=== PATIENT | female | born 1955 | race Two or more races ===

== ENCOUNTER 2020-06-23 18:18 | Inpatient (IN) | payer SELFPAY ==
[~2020-06-23] VITALS: Ht 142.2 cm; Wt 85.1 kg
[2020-06-23] MEDS ORDERED: ATORVASTATIN CA40 MG ORAL (18:24)
[2020-06-23] MEDS ORDERED: NORMODYNE200 MG ORAL (18:24)
[2020-06-23] MEDS ORDERED: FUROSEMIDE40 MG ORAL (18:24)
[2020-06-23] MEDS ORDERED: CALCIUM ACETAT667 M1 PO (18:24)
[2020-06-23 18:35] VITALS: BP 111/53
[2020-06-23] MEDS ORDERED: NAPROXEN250 M1 PO (18:47)
[2020-06-23] MEDS ORDERED: GABAPENTIN100 MG ORAL (18:47)
[2020-06-23] MEDS ORDERED: AMLODIPINE BESY10 MG ORAL (18:47)
[2020-06-23] MEDS ORDERED: ASPIRIN81 MG ORAL (18:47)
[2020-06-23 19:10] VITALS: BP 122/62
[2020-06-23 19:18] LABS: BASOPHILS % (AUTO) 2.3 % (0.0-2.0); EOSINOPHILS % (AUTO) 2.2 % (0.0-3.0); HEMATOCRIT 30.9 % (37.0-47.0); HEMOGLOBIN 9.5 G/DL (12.0-16.0); LYMPHOCYTES % (AUTO) 15.9 % (20.0-45.0); MEAN CORPUSCULAR VOLUME 88 FL (80-99); NEUTROPHILS % (AUTO) 71.6 % (45.0-75.0); PLATELET COUNT 369 K/UL (150-450); RED BLOOD COUNT 3.49 M/UL (4.20-5.40); RED CELL DISTRIBUTION WIDTH 16.3 % (11.6-14.8); WHITE BLOOD COUNT 6.3 K/UL (4.8-10.8)
--- NOTE | 2020-06-23 20:22 | Emergency Room Report ---
History of Present Illness General Chief Complaint: Generalized Weakness Source: Patient, Family Member, EMS Present Illness HPI The patient states she has had generalized weakness for the past 2 days. She has no other symptoms. She denies fever chills. She denies nausea or vomiting. She denies chest pain or shortness of breath. She denies abdominal pain. She has no other complaints. Later, I was able to speak with the patient's daughter who states that the patient has a recent diagnosis of renal failure. The daughter states that 2 weeks ago she has started developing swelling in her legs. She was seen by multiple doctors and determined that she was in renal failure. She was admitted to [facility] for approximately 6 days. She was discharged from there 2 days ago. Since she was discharged she has slowly become weak and very fatigued. She is on a cocktail of medications that includes a significant amount of diuretics and blood pressure medications. She was told at discharge that she did not currently need dialysis she may in the future. She does have a car deliverer that she did contact but the car deliverer told her to increase her Lasix. She states she is just become very weak and fatigued. 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 COVID-19 Screening: Negative COVID-19 COVID-19 Testing Source: [facility] Patient History Past Medical History: see triage record, DM, HTN, renal disease Social History: Denies: smoking, alcohol use, drug use Reviewed Nursing Documentation: PMH: Agreed; PSxH: Agreed Nursing Documentation-PMH Past Medical History: No History, Except For Hx Hypertension: Yes Hx Diabetes: Yes Review of Systems All Other Systems: negative except mentioned in HPI Physical Exam Vital Signs Date Time Temp Pulse Resp B/P (MAP) Pulse Ox O2 Delivery O2 Flow Rate FiO2 06/23/20 18:07 98.4 67 20 105/61 (76) 99 Room Air Sp02 EP Interpretation: reviewed, normal General Appearance: no apparent distress, alert, GCS 15, non-toxic Head: normocephalic, atraumatic Eyes: bilateral eye normal inspection, bilateral eye PERRL ENT: hearing grossly normal, normal pharynx, no angioedema, normal voice Neck: normal inspection, full range of motion, supple/symm/no masses Respiratory: chest non-tender, lungs clear, normal breath sounds, no re spiratory distress, no retraction, no accessory muscle use, speaking full sentences Cardiovascular #1: regular rate, rhythm, no edema Gastrointestinal: normal bowel sounds, non tender, soft, non-distended, no gua rding, no rebound Rectal: deferred Musculoskeletal: normal inspection, back normal, normal range of motion, non- tender Neurologic: alert, motor strength/tone normal, oriented x3, sensory intact, responsive, speech normal Psychiatric: judgement/insight normal, memory normal, mood/affect normal, no suicidal/homicidal ideation Skin: no rash, normal color Medical Decision Making Diagnostic Impression: Primary Impression: Renal failure Additional Impressions: Hyperglycemia EKG abnormality Hyponatremia ER Course This patient is found to have severe renal failure. The patient's creatinine is 15, her potassium is 7.9. The EKG does show some changes of sinus bradycardia with first-degree AV block. I am concerned for these changes as there is slight widening of the QRS complex. The patient was given insulin IV, glucose IV, calcium gluconate and albuterol by nebulizer to decrease her potassium acutely in the emergency department. My colleague who is taking over Dr. Hickey will place the dialysis catheter that this patient needs it. Please see his p harley note. Patient will be admitted to the ICU and the on-call car deliverer was contacted to arrange emergency dialysis for this patient. The patient is critically ill. She is admitted for further evaluation and treatment. This patient is critically ill. This patient required complex medical decision- making, aggressive intervention, extensive laboratory workup and monitoring. Critical care time: 40 minutes. This patient was evaluated in the context of the global COVID-19 pandemic, which necessitated consideration that the patient might be at risk for infection with the [id number] virus that causes COVID-19. Institutional protocols and algorithms that pertain to the evaluation of patients at risk for COVID-19 and the state of rapid change based on information released by multiple regulatory bodies including the CDC and federal and state organizations. These policies and algorithms were followed during the patient's care in the ED. Laboratory Tests Test 06/23/20 18:55 06/23/20 19:50 White Blood Count 6.3 K/UL (4.8-10.8) Red Blood Count 3.49 M/UL (4.20-5.40) L Hemoglobin 9.5 G/DL (12.0-16.0) L Hematocrit 30.9 % (37.0-47.0) L Mean Corpuscular Volume 88 FL (80-99) Mean Corpuscular Hemoglobin 27.3 PG (27.0-31.0) Mean Corpuscular Hemoglobin Concent 30.8 G/DL (32.0-36.0) L Red Cell Distribution Width 16.3 % (11.6-14.8) H Platelet Count 369 K/UL (150-450) Mean Platelet Volume 6.6 FL (6.5-10.1) Neutrophils (%) (Auto) 71.6 % (45.0-75.0) Lymphocytes (%) (Auto) 15.9 % (20.0-45.0) L Monocytes (%) (Auto) 8.0 % (1.0-10.0) Eosinophils (%) (Auto) 2.2 % (0.0-3.0) Basophils (%) (Auto) 2.3 % (0.0-2.0) H Troponin I 0.000 ng/mL (0.000-0.056) Sodium Level 123 MMOL/L (136-145) L Potassium Level 7.9 MMOL/L (3.5-5.1) *H Chloride Level 91 MMOL/L (98-107) L Carbon Dioxide Level 15 MMOL/L (21-32) L Anion Gap 17 mmol/L (5-15) H Blood Urea Nitrogen 90 mg/dL (7-18) H Creatinine 15.3 MG/DL (0.55-1.30) H Estimated Glomerular Filtration Rate 2.4 mL/min (>60) Glucose Level 108 MG/DL (74-106) H Calcium Level 6.7 MG/DL (8.5-10.1) L Total Bilirubin 0.6 MG/DL (0.2-1.0) Aspartate Amino Transferase (AST) < 5 U/L (15-37) L Alanine Aminotransferase (ALT) 24 U/L (12-78) Alkaline Phosphatase 114 U/L (46-116) Total Creatine Kinase 208 U/L (26-308) Total Protein 6.8 G/DL (6.4-8.2) Albumin 3.3 G/DL (3.4-5.0) L Globulin 3.5 g/dL Albumin/Globulin Ratio 0.9 (1.0-2.7) L EKG Diagnostic Results Rate: bradycardiac Rhythm: other - S.bradycardia with 1st degree AV block. ST Segments: no acute changes Other Impression Q-waves in V1, V2, NSST findings. Rhythm Strip Diag. Results EP Interpretation: yes Rate: 50's Rhythm: no PVC's, no ectopy, other - S.bradycardia Last Vital Signs Date Time Temp Pulse Resp B/P (MAP) Pulse Ox O2 Delivery O2 Flow Rate FiO2 06/23/20 18:35 98.4 58 20 111/53 99 Room Air Disposition: ADMITTED INPATIENT Condition: Critical Referrals: NON PHYSICIAN (PCP) Kylee Allison DO Jun 23, 2020 20:22
[2020-06-23 20:38] LABS: ALANINE AMINOTRANSFERASE 24 U/L (12-78); ALBUMIN 3.3 G/DL (3.4-5.0); ALBUMIN/GLOBULIN RATIO 0.9 (1.0-2.7); ALKALINE PHOSPHATASE 114 U/L (46-116); ANION GAP 17 mmol/L (5-15); ASPARTATE AMINO TRANSFERASE < 5 U/L (15-37); BILIRUBIN,TOTAL 0.6 MG/DL (0.2-1.0); BLOOD UREA NITROGEN 90 mg/dL (7-18); CALCIUM 6.7 MG/DL (8.5-10.1); CARBON DIOXIDE 15 MMOL/L (21-32); CHLORIDE 91 MMOL/L (98-107); CREATINE KINASE 208 U/L (26-308); CREATININE 15.3 MG/DL (0.55-1.30); SODIUM 123 MMOL/L (136-145)
[2020-06-23 21:05] LABS: POTASSIUM 7.9 MMOL/L (3.5-5.1)
[2020-06-23 21:30] VITALS: BP 115/54
[2020-06-23] MEDS ORDERED: Albuterol ud Inhalation HHN ONE (21:30)
[2020-06-23] MEDS ORDERED: Insulin Human Regular 100units/ml 3ml IV ONE (21:30)
[2020-06-23] MEDS ORDERED: Calcium Gluconate 1gm/50ml 50 ML IVPB ONE (21:30)
[2020-06-23] MEDS ORDERED: Lidocaine 1% Plain 30 ml INJ ONE ×2 (22:03→22:15)
[2020-06-23] MEDS ORDERED: Acetaminophen 500mg (ES) tab ORAL PRN (22:15)
[2020-06-23] MEDS ORDERED: D5NS 1,000 ML IV SCH (22:15)
[2020-06-23] MEDS ORDERED: Sodium Polystyrene Sulfonate 15gm Powder ORAL STA (22:21)
[2020-06-23] MEDS: Sodium Bicarbonate 150 ML in D5W 1000ml 1,000 ML IV SCH (22:30)
[2020-06-23] MEDS ORDERED: Calcium Gluconate 1gm/50ml 50 ML IVPB SCH (22:30)
--- NOTE | 2020-06-23 22:32 | Emergency Room Report ---
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 COVID-19 Screening: Negative COVID-19 COVID-19 Testing Source: [facility] Nursing Documentation-PMH Past Medical History: No History, Except For Hx Hypertension: Yes Hx Diabetes: Yes Physical Exam Vital Signs Date Time Temp Pulse Resp B/P (MAP) Pulse Ox O2 Delivery O2 Flow Rate FiO2 06/23/20 18:07 98.4 67 20 105/61 (76) 99 Room Air Procedures Central Line Central Line : Consent: Written Central Line Lumen: triple Maximal Sterile Barrier Tech: yes cap, yes mask, yes sterile gown, yes sterile gloves, yes large sterile sheet, yes hand hygiene, yes chlorhexidine prep Central Line Postion: femoral (R) Anesthesia: Lidocaine cc's of anesthesia: 10 US Guided Line?: No Complications: none Central Line Post Position: sutured, good blood return Attempts: One Patient Tolerated: Well Complications: None Progress Patient was signed out to me to put in a dialysis catheter. She presents with acute renal failure with hyperkalemia. She was treated medically. She is to be admitted to the ICU for dialysis. With consent I placed a right femoral dialysi s catheter. Patient tolerated procedure without any problem. This was done under sterile condition. Medical Decision Making Diagnostic Impression: Primary Impression: Renal failure Additional Impressions: Hyperglycemia Hyponatremia EKG abnormality Last Vital Signs Date Time Temp Pulse Resp B/P (MAP) Pulse Ox O2 Delivery O2 Flow Rate FiO2 06/23/20 18:35 98.4 58 20 111/53 99 Room Air Disposition: ADMITTED INPATIENT Condition: Critical Referrals: NON PHYSICIAN (PCP) Carter Hickey MD Jun 23, 2020 22:32
[2020-06-23] MEDS ORDERED: FUROSEMIDE IV SCH (23:00)
[2020-06-23] MEDS ORDERED: D5W IV SCH (23:00)
[2020-06-23 23:18] VITALS: BP 107/56
[2020-06-24] VITALS (25 sets, daily range): BP systolic 105–184; BP diastolic 45–103
[2020-06-24] MEDS ORDERED: Albuterol/Ipratropium 3ml neb HHN ONE
[2020-06-24] MEDS ORDERED: Heparin Sod 1000 units/ml 10ml IV SCH (03:00)
[2020-06-24] MEDS: Sodium Bicarbonate 150 ML in D5W 1000ml 1,000 ML IV SCH ×4 (03:18→21:16)
[2020-06-24] MEDS ORDERED: HYDROcodone/Acetamin 10/325 tab ORAL PRN (07:45)
[2020-06-24 09:03] LABS: BASOPHILS % (AUTO) 0.8 % (0.0-2.0); EOSINOPHILS % (AUTO) 1.4 % (0.0-3.0); HEMATOCRIT 25.5 % (37.0-47.0); HEMOGLOBIN 8.4 G/DL (12.0-16.0); LYMPHOCYTES % (AUTO) 8.7 % (20.0-45.0); MEAN CORPUSCULAR VOLUME 84 FL (80-99); MONOCYTES % (AUTO) 7.3 % (1.0-10.0); NEUTROPHILS % (AUTO) 81.8 % (45.0-75.0); PLATELET COUNT 337 K/UL (150-450); RED BLOOD COUNT 3.04 M/UL (4.20-5.40); RED CELL DISTRIBUTION WIDTH 15.4 % (11.6-14.8); WHITE BLOOD COUNT 7.7 K/UL (4.8-10.8)
--- NOTE | 2020-06-24 09:15 | History and Physical Report ---
DATE OF ADMISSION: 06/23/2020 CHIEF COMPLAINT: Acute on chronic renal failure and hyperkalemia. HISTORY OF PRESENT ILLNESS: The patient is a 64-year-old female with a history of chronic kidney disease. She apparently has a history of partial nephrectomy on the left side and has had worsening renal insufficiency. She was admitted to [facility] a week ago. She was admitted for kidney problems, but is unclear of exactly what her numbers were like. She was scheduled to follow up in a week. She felt weak and tired and presented to the emergency room, was noted to have a sodium of 123 and a potassium of 8. Her creatinine was 15 and BUN of 90. She is now status post emergent hemodialysis for severe hyperkalemia. PAST MEDICAL HISTORY: As above and history of hypertension and diabetes. PAST SURGICAL HISTORY: Includes a partial nephrectomy on the left. CURRENT MEDICATIONS: Reconciled and reviewed. ALLERGIES: None. FAMILY HISTORY: None. SOCIAL HISTORY: Negative for tobacco, ethanol, or drugs. REVIEW OF SYSTEMS: GENERAL: No fevers or chills. Positive malaise and weakness. HEENT: No headaches. CARDIOPULMONARY: No chest pain or shortness of breath. GASTROINTESTINAL: No nausea or vomiting. GENITOURINARY: No urgency or frequency. MUSCULOSKELETAL: No joint pain or swelling. NEUROLOGIC: No evidence of seizures. PHYSICAL EXAMINATION: VITAL SIGNS: Temperature 98.4, pulse 82, respirations 15, blood pressure 171/56. GENERAL: The patient is well developed, in no apparent distress. HEART: Regular rate and rhythm. LUNGS: Clear. ABDOMEN: Soft, nontender, and nondistended. EXTREMITIES: Without clubbing, cyanosis, or edema. LABORATORY DATA: Sodium 123, potassium 7.9, bicarb 15, BUN 90, creatinine was 15. White count was 6, hemoglobin 9.5. ASSESSMENT: This is a 64-year-old female admitted with acute renal failure and hyperkalemia status post emergent hemodialysis. PLAN: 1. Continue hemodialysis per Renal. 2. Await repeat lytes. 3. Continue outpatient insulin regimen. 4. Monitor Accu-Cheks. 5. Check a renal ultrasound. 6. The patient likely will need long-term hemodialysis. 7. Plan of care was discussed with the patient at the bedside. 8. Renal consultation is pending. Trev Montemayor M.D. DR: CHANCE JOB#: [id number] CC:
[2020-06-24 09:37] LABS: ALANINE AMINOTRANSFERASE 19 U/L (12-78); ALBUMIN 3.1 G/DL (3.4-5.0); ALBUMIN/GLOBULIN RATIO 0.8 (1.0-2.7); ALKALINE PHOSPHATASE 114 U/L (46-116); ANION GAP 15 mmol/L (5-15); ASPARTATE AMINO TRANSFERASE 18 U/L (15-37); BILIRUBIN,TOTAL 0.8 MG/DL (0.2-1.0); BLOOD UREA NITROGEN 34 mg/dL (7-18); CALCIUM 8.4 MG/DL (8.5-10.1); CARBON DIOXIDE 25 MMOL/L (21-32); CHLORIDE 98 MMOL/L (98-107); CHOLESTEROL 110 MG/DL (< 200); CREATINE KINASE 166 U/L (26-308); HDL CHOLESTEROL 33 MG/DL (40-60); PHOSPHORUS 6.6 MG/DL (2.5-4.9); POTASSIUM 3.8 MMOL/L (3.5-5.1); SODIUM 138 MMOL/L (136-145); TRIGLYCERIDES 210 MG/DL (30-150)
[2020-06-24] MEDS: Levemir Flexpen SUBQ SCH ×2 (09:44→18:51)
[2020-06-24] MEDS ORDERED: HydrALAZINE 50mg tab ORAL SCH (09:58)
[2020-06-24] MEDS ORDERED: Heparin Sod 1000 units/ml 10ml IV PRN (09:59)
[2020-06-24] MEDS: Aspirin EC 81mg tab ORAL SCH (10:34)
--- NOTE | 2020-06-24 10:37 | Diagnostic Imaging Report ---
Indication: Acute renal failure Technique: Grayscale and duplex images of the kidneys, retroperitoneum, and bladder were obtained. Comparison: none Findings: Right kidney measures 10.9 cm in length. Left kidney measures 8.2 cm in length. Both kidneys demonstrate normal echogenicity. No hydronephrosis. No focal abnormality. Normal inferior vena cava. Bladder is nearly empty, unremarkable. Impression: negative.
--- NOTE | 2020-06-24 11:15 | Consultation ---
DATE OF CONSULTATION: 06/24/2020 CONSULTING PHYSICIAN: Oli Mayfield MD. REFERRING PHYSICIAN: Trev Montemayor MD. CHIEF COMPLAINT/REASON FOR HOSPITALIZATION: Uremia, hyperkalemia. HISTORY OF PRESENT ILLNESS: The patient is a 64-year-old lady with long-standing diabetes and hypertension. She presents with a potassium of 7.9, and generalized weakness. I was called last night and emergency dialysis was done before the time of this dictation. She has been followed at [facility], was there within the last few weeks. She apparently was discharged on Lasix 40 mg 3 pills twice a day, but was cut down to 40 mg once a day by her physician. She was also on labetalol 200 mg pills 3 times a day, was reduced also recently. She presents with generalized weakness, severe hyperkalemia, and had some sinus bradycardia with first degree AV block. There is no pulmonary edema or respiratory distress. ALLERGIES: None known. HOME MEDICATIONS: Include Levemir insulin 20 units every evening, calcium acetate 667 mg three times a day, amlodipine 10 mg daily, Lasix 40 mg daily as noted above, gabapentin 300 mg daily, aspirin 81 mg daily, atorvastatin 40 mg daily, and naproxen 250 mg, dosing schedule not known. PAST SURGICAL HISTORY: She had removal half of the left kidney for a mass, which apparently was benign. HABITS: She is a nondrinker and nonsmoker. SOCIAL HISTORY: She was born in [facility], has been in this country since about 1989. She lives with her and daughter. SYSTEM REVIEW: HEAD, EYES, EARS, NOSE, AND THROAT: She states her vision and hearing is good. No known laser treatment or diabetic retinopathy. ENDOCRINE: History of long-standing diabetes. No known thyroid disease. History of obesity. PULMONARY: No asthma, TB, or chronic cough. CARDIAC: No angina, [place], or palpitations. History of hypertension. GASTROINTESTINAL: No GI bleeding or ulcers. She has occasional anorexia. She had diarrhea for 1 or 2 days, a few weeks ago, which resolved. GENITOURINARY: No dysuria, hematuria, or kidney stones. NEUROLOGICAL: No CVA, syncope, or seizures. MUSCULOSKELETAL: No history of severe arthritis. PHYSICAL EXAMINATION: GENERAL: The patient is alert lady, lying in bed in the ICU, in no acute distress. VITAL SIGNS: Blood pressure 171/56, pulse 90, pulse oximetry 97%, temperature 98.4. HEAD, EYES, EARS, NOSE, AND THROAT: Sclerae are nonicteric. Ocular motions intact in all directions. Oral mucosa moist. NECK: No adenopathy or thyroid enlargement. LUNGS: Clear. HEART: Regular rhythm. No murmur. ABDOMEN: Obese and soft. No organomegaly or masses. EXTREMITIES: Show 1+ ankle edema. NEUROLOGIC: She is alert and oriented. Cranial nerves are intact. She moves all extremities. PERTINENT LABORATORY DATA: On admission, white count 6.3, hemoglobin 9.5. Sodium 123, potassium 7.9, chloride 91, CO2 15, BUN 90, creatinine 15.3. Repeat after dialysis, potassium is 3.8. Glucose 108. Calcium 6.7. Albumin 3.3. Troponin 0 [place] 0[place] [address]. Chest x-ray, not available in the computer, we will review it. IMPRESSION: 1. Hyperkalemia. 2. Chronic kidney disease, stage 5, likely end-stage renal disease. 3. Hypertensive nephrosclerosis and cardiovascular disease. 4. Insulin-dependent diabetes with diabetic nephropathy. 5. Recent adjustment in medications, which may have led her to mild dehydration. PLAN: The patient will require dialysis. She also seems to be a little bit dehydrated and was given fluids. We will monitor laboratories and clinical course carefully. The patient understands the need for the dialysis. I have explained this and talked in detail to the daughter. Due to her lack of adequate insurance, she may need to get acute dialysis here and then go back to the [facility] for long-term care, and this was also discussed. Oli Mayfield M.D. DR: NILE JOB#: [id number] CC:
[2020-06-24] MEDS: NovoLOG Insulin Flexpen SUBQ SCH ×3 (11:59→21:31)
[2020-06-24 12:50] LABS: APPEARANCE,URINE SLIGHTLY CLOUDY; BILIRUBIN, URINE NEGATIVE (NEGATIVE); COLOR,URINE PALE YELLOW; GLUCOSE, URINE (UA) NEGATIVE (NEGATIVE); KETONES,URINE 1+ (NEGATIVE); LEUKOCYTE ESTERASE ,URINE 3+ (NEGATIVE); NITRITE,URINE NEGATIVE (NEGATIVE); PH,URINE 6 (4.5-8.0); PROTEIN,URINE 3+ (NEGATIVE); UROBILINOGEN,URINE NORMAL MG/DL (0.0-1.0)
[2020-06-24] MEDS ORDERED: LISINOPRIL5 MG ORAL (16:50)
[2020-06-24] MEDS ORDERED: NOVOLOG100 UNITS1 SUBQ (16:52)
[2020-06-24] MEDS ORDERED: ARANESP40 MCG/1 M IV (17:01)
--- NOTE | 2020-06-24 17:37 | Cardiology Report ---
APPROVED REPORT EKG Measurement Heart [id number] <Conclusion> Sinus bradycardia with 1st degree AV block Low voltage QRS Cannot rule out Anterior infarct, age undetermined Abnormal ECG
[2020-06-24] MEDS: HydrALAZINE 50mg tab ORAL SCH (19:07)
[2020-06-24] MEDS: Dyna-Hex 2% Top Sol 2oz TOPIC SCH (21:15)
[2020-06-25] VITALS: BP 151/62
[2020-06-25] MEDS: HydrALAZINE 50mg tab ORAL SCH ×5 (00:47→23:21)
[2020-06-25] MEDS: Sodium Bicarbonate 150 ML in D5W 1000ml 1,000 ML IV SCH ×2 (03:15→08:00)
[2020-06-25 04:00] VITALS: BP 159/70
[2020-06-25] MEDS: NovoLOG Insulin Flexpen SUBQ SCH ×4 (05:40→20:47)
[2020-06-25 06:22] LABS: BASOPHILS % (AUTO) 0.9 % (0.0-2.0); EOSINOPHILS % (AUTO) 2.1 % (0.0-3.0); HEMATOCRIT 26.7 % (37.0-47.0); HEMOGLOBIN 8.5 G/DL (12.0-16.0); LYMPHOCYTES % (AUTO) 18.8 % (20.0-45.0); MEAN CORPUSCULAR VOLUME 84 FL (80-99); NEUTROPHILS % (AUTO) 69.1 % (45.0-75.0); PLATELET COUNT 342 K/UL (150-450); RED BLOOD COUNT 3.19 M/UL (4.20-5.40); RED CELL DISTRIBUTION WIDTH 15.7 % (11.6-14.8); WHITE BLOOD COUNT 6.7 K/UL (4.8-10.8)
[2020-06-25 06:40] LABS: CALCIUM 7.4 MG/DL (8.5-10.1); CREATININE 7.6 MG/DL (0.55-1.30); POTASSIUM 3.3 MMOL/L (3.5-5.1)
[2020-06-25 08:03] VITALS: BP 133/70
[2020-06-25] MEDS: Aspirin EC 81mg tab ORAL SCH (08:42)
[2020-06-25] MEDS: Levemir Flexpen SUBQ SCH ×2 (08:44→17:24)
[2020-06-25 12:00] VITALS: BP 141/66
[2020-06-25] MEDS ORDERED: Cefepime HCl 1 GM in D5W 55 ML IVPB SCH (12:00)
[2020-06-25] MEDS ORDERED: Vancomycin 1.25gm/NS Premix q24h IVPB SCH ×2 (14:00→18:00)
[2020-06-25] MEDS ORDERED: Gentamicin Rx monitoring MISC PRN (15:00)
[2020-06-25 16:00] VITALS: BP 158/68
[2020-06-25] MEDS ORDERED: Gentamicin inj 400 MG in NS 110 ML IVPB SCH (16:00)
--- NOTE | 2020-06-25 16:19 | Diagnostic Imaging Report ---
Indication: Chest pain Technique: One view of the chest Comparison: none Findings: The heart is enlarged. Lungs and pleural spaces are clear other than some atelectasis at the right lung base. Impression: Cardiomegaly. No definite acute process
--- NOTE | 2020-06-25 16:30 | Discharge Summary ---
DATE OF ADMISSION: 06/23/2020 DATE OF DISCHARGE: 06/25/2020 ADMISSION DIAGNOSES: 1. Severe hyperkalemia. 2. End-stage renal disease. 3. Hypertension. 4. Diabetes. DISCHARGE DIAGNOSES: 1. Severe hyperkalemia. 2. End-stage renal disease. 3. Hypertension. 4. Diabetes. HOSPITAL COURSE: The patient is a 64-year-old female, who was recently discharged from [facility] for acute on chronic renal failure. After several days because of malaise, weakness, she presented to the emergency room where she was noted to be in francesca renal failure. She had a potassium of 8. She had flattening of T-waves and bradycardia noted. A hemodialysis catheter was placed and she underwent emergent hemodialysis. She was in the intensive care unit for one day. She did well afterwards. Random cultures drawn in the emergency room did grow gram-positive cocci and her urinalysis was also positive. The case was discussed with the physical scientist and discussed with the Nephrology fellow at [facility]. The patient will be discharged and instructed to go to the ER to be readmitted there the patient could be established in the [facility]. She was given a dose of antibiotics. She has had no fevers, cough, chest pain or shortness of breath. I suspect the positive cultures, possibly contaminant. The patient was given a dose of IV vancomycin. DISCHARGE MEDICATIONS: Please see discharge medication list for discharge medications. DIET: Renal diet. ACTIVITY: Ad-sherrill. Trev Montemayor M.D. DR: BRIANNA JOB#: [id number] CC:
--- NOTE | 2020-06-25 17:22 | Emergency Room Report ---
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 Patient History Now: No Nursing Documentation-PMH Past Medical History: No History, Except For Hx Cardiac Problems: Yes Hx Hypertension: Yes Hx Diabetes: Yes Hx Cancer: No Hx Gastrointestinal Problems: No Hx Neurological Problems: No Physical Exam Vital Signs Date Time Temp Pulse Resp B/P (MAP) Pulse Ox O2 Delivery O2 Flow Rate FiO2 06/23/20 18:07 98.4 67 20 105/61 (76) 99 Room Air Procedures Additional Procedure Procedure Narrative Dialysis access removal I was called by Dr. Mayfield to remove a dialysis access on the right lower extremity. Patient had it placed for temporary dialysis. At this time patient no longer requires the access. Verbal consent was obtained, stitches were removed, and the dialysis access was removed by me. Pressure was held by the nurse for a few minutes. There were no complications. Medical Decision Making Diagnostic Impression: Primary Impression: Renal failure Additional Impressions: Hyperglycemia Hyponatremia EKG abnormality Last Vital Signs Date Time Temp Pulse Resp B/P (MAP) Pulse Ox O2 Delivery O2 Flow Rate FiO2 06/25/20 16:00 98.8 84 18 158/68 (98) 94 06/24/20 16:00 Room Air Room Air Disposition: ADMITTED INPATIENT Condition: Stable Referrals: NON PHYSICIAN (PCP) Michael Mcintosh M.D. Jun 25, 2020 17:22
[2020-06-25 20:00] VITALS: BP 145/67
--- NOTE | 2020-06-25 20:15 | Discharge Summary ---
DATE OF ADMISSION: 06/23/2020 DATE OF DISCHARGE: 06/25/2020 PERTINENT HISTORY: The patient is a 64-year-old lady with chronic kidney disease, diabetes, and hypertension. She presents with generalized weakness and potassium of 7.9. PERTINENT PHYSICAL FINDINGS: GENERAL: At the time of my exam, she is alert and oriented, in no acute distress. LUNGS: Clear. HEART: Regular rhythm. ABDOMEN: Obese and soft. No organomegaly. EXTREMITIES: 1+ edema. NEUROLOGIC: She is alert and oriented. SKIN: No lesions. COURSE IN THE HOSPITAL: The patient had sodium of 123, potassium 7.9, BUN 90, creatinine 15.3, and had emergency dialysis and medical management and her potassium came down to as low as 3.3 post dialysis. She had stable glucose of less than 200 and stable vital signs. She had a femoral catheter placed for urgent dialysis. Multiple discussions were made with the daughter and with Dr. Montemayor. She has been a patient at the Nephrology Department in [facility] and left that hospital recently. She may have been over-diuresed with a high dose of Lasix prior to this admission, it is not entirely clear. Microbiology showed urine culture with gram-negative rods and blood cultures showed gram-positive cocci in pairs concerning for streptococcus, etiology unclear. It is not clear if she had a true sepsis as she did not have clinical symptoms of sepsis and no fever. The patient was treated with vancomycin for the gram-positive cocci and cefepime for the UTI, pending final culture results. After detailed discussion with the daughter and the nephrology fellow at the [facility], it was felt that it would be best that she return her care to her physicians at the [facility], where she had been a long-term patient. In view of her lack of clinical symptoms, it was felt safe to discharge the patient home after removal of her femoral dialysis catheter post dialysis on 06/26/2020 and after receiving antibiotics, and she was to subsequently go to the [facility] later today or the following morning as the daughter wanted her care to be taken there. FINAL DIAGNOSES: 1. Chronic kidney disease stage 5. 2. Hyperkalemia. 3. Diabetic nephropathy. 4. Hypertensive nephrosclerosis and hypertensive heart disease. 5. Gram-positive cocci bacteremia, not clear if this is a pre-existing sepsis or possibly a contaminant from dialysis line. 6. UTI with gram-negative rods. 7. Dehydration. 8. Hyponatremia, improved with dialysis. PLAN: As above. All medicines will be reassessed by the treating [facility] physicians. Oli Mayfield M.D. DR: Antonio JOB#: [id number] CC:
[2020-06-25] MEDS: Dyna-Hex 2% Top Sol 2oz TOPIC SCH (20:46)
[2020-06-26] VITALS: BP 151/65
[2020-06-26 04:00] VITALS: BP 155/66
[2020-06-26] MEDS: HydrALAZINE 50mg tab ORAL SCH (05:34)
[2020-06-26] MEDS: NovoLOG Insulin Flexpen SUBQ SCH (05:37)
[2020-06-26 06:29] VITALS: BP 145/63
[2020-06-26] MEDS: Aspirin EC 81mg tab ORAL SCH (08:47)
[2020-06-26] MEDS: Levemir Flexpen SUBQ SCH (08:48)
[2020-06-26 09:00] VITALS: BP 137/66
[2020-06-26] MEDS ORDERED: Meropenem 1 GM in NS 55 ML IVPB SCH (10:15)
--- NOTE | 2020-06-26 10:15 | Nephrology Progress Note ---
Assessment/Plan Problem List: (1) Streptococcal sepsis (2) Infection due to ESBL-producing Escherichia coli (3) Hyperkalemia (4) End-stage renal disease Plan meropenam today, no clinical distress, to jn seen at [facility] soon, I spoke to prize jacker there Subjective Constitutional: Reports: no symptoms HEENT: Reports: no symptoms Genitourinary: Reports: no symptoms Neurologic/Psychiatric: Reports: no symptoms Objective Objective Last 24 Hour Vital Signs Date Time Temp Pulse Resp B/P (MAP) Pulse Ox O2 Delivery O2 Flow Rate FiO2 06/26/20 09:00 98.0 72 18 137/66 (89) 95 06/26/20 09:00 Room Air 06/26/20 06:29 98.1 78 18 145/63 (90) 93 06/26/20 05:34 155/66 06/26/20 04:00 98.4 77 18 155/66 (95) 93 06/26/20 00:00 98.7 73 16 151/65 (93) 95 06/25/20 23:21 151/65 06/25/20 21:00 Room Air 06/25/20 20:00 98.2 80 18 145/67 (93) 94 06/25/20 17:20 157/74 06/25/20 16:00 98.8 84 18 158/68 (98) 94 06/25/20 12:00 98.2 82 18 141/66 (91) 94 Intake and Output 06/25/20 06/26/20 19:00 07:00 Intake Total 300 ml Output Total 500 ml Balance -200 ml Intake Oral 300 ml Output Urine Total 500 ml Hemodialysis UF 0 ml # Voids 2 # Bowel Movements 1 Laboratory Tests 06/25/20 12:02: POC Whole Blood Glucose [Pending] 06/25/20 16:58: POC Whole Blood Glucose 171H 06/26/20 05:15: Random Vancomycin Level 18.8 Height (Feet): 4 Height (Inches): 8.00 Weight (Pounds): 183 General Appearance: no apparent distress, obese EENT: normal ENT inspection Cardiovascular: regular rhythm Respiratory/Chest: lungs clear, normal breath sounds Abdomen: non tender Extremities: moderate edema Neurologic: mechanical integrity engineer II-XII grossly normal Oli Mayfield MD Jun 26, 2020 10:15
[2020-06-26] MEDS ORDERED: Meropenem 500mg/NS 55ml IVPB SCH ×2 (11:00)
[2020-06-26] MEDS ORDERED: Tubing IV Secondary IV ONE (11:42)
[2020-06-26] MEDS ORDERED: NS 275ml ONE (11:42)
[2020-06-26] MEDS ORDERED: HydrALAZINE 25mg tab ORAL SCH (12:00)
[2020-06-26] MEDS ORDERED: Vancomycin 1gm/D5W 275ml IVPB ONE ×2 (15:00)
== END 2020-06-26 11:43 | disposition home or self-care (01) | DRG 871 ==
LOC: EDBD 18:18 → EMR 18:40 → ICU 21:40 → EDBEDREQSVC 22:00 → EDBEDREQ 22:09 → 3E 06-24 17:11 → 4E 06-26 05:56
PROC: 06HM33Z Insertion of Infusion Device into Right Femoral Vein, Percutaneous Approach (ICD-10-PCS; principal; 2020-06-23)
PROC: 5A1D70Z Performance of Urinary Filtration, Intermittent, Less than 6 Hours Per Day (ICD-10-PCS; principal; 2020-06-23)
DX: A40.9 Streptococcal sepsis, unspecified (principal); N18.6 End stage renal disease; I13.2 Hypertensive heart and chronic kidney disease with heart failure and with stage 5 chronic kidney disease, or end stage renal disease; E87.1 Hypo-osmolality and hyponatremia; N39.0 Urinary tract infection, site not specified; Z16.12 Extended spectrum beta lactamase (ESBL) resistance; E87.5 Hyperkalemia; E11.22 Type 2 diabetes mellitus with diabetic chronic kidney disease; E86.0 Dehydration; B96.89 Other specified bacterial agents as the cause of diseases classified elsewhere; Z79.4 Long term (current) use of insulin; B96.20 Unspecified Escherichia coli [E. coli] as the cause of diseases classified elsewhere
CPT/HCPCS: 36415; 71045; 76770; 80048; 80053; 80061; 80202; 81003; 82270; 82550; 82570; 82962; 83036; 83735; 83880; 84100; 84300; 84439; 84443; 84484; 85025; 85610; 85730; 86703; 86803; 87040; 87081; 87086; 87181; 87340; 87517; 93005; 94640; 94664; 96365; 96375; 99291; J1815; J2405; S5561; U0002